=== PATIENT | male | born 1990 | race Caucasian/White ===

== ENCOUNTER 2017-06-05 13:18 | Emergency (ER) | payer BC, SELFPAY | END 2017-06-05 17:51 | disposition home or self-care (01) | PROVIDERS: Emergency Provider Emergency Medicine; Visit Provider Emergency Medicine | DX: K52.9 Noninfective gastroenteritis and colitis, unspecified (principal) | CPT/HCPCS: 74177; 80053; 83690; 85025; 87275; 87276; 87507; 96365; 99284; Q9967 ==